=== PATIENT | female | born 1995 | race African-American/Black ===

== ENCOUNTER → 2016-10-13 | Outpatient (CLI) | payer OTHER ==
--- NOTE | 2016-10-13 08:25 | US ---
EXAMINATION TYPE: US pelvic complete DATE OF EXAM: 10/13/2016 7:06 AM COMPARISON: No previous CLINICAL HISTORY: 21-year-old female IUD Placement Z97.5. IUD placement, spotting x 2 days, 3 , para 3 TECHNIQUE: Transabdominal (TA) Date of LMP: 09/30/16 FINDINGS: Uterus: Anteverted measuring 8.6 x 4.8 x 4.1 cm Endometrial Stripe: 0.4 cm. The IUD appears positioned low at the level of the lower uterine segment. The IUD sidearms appear to project into the myometrium. Right Ovary: 2.8 x 2.2 x 2.0 cm Left Ovary: 2.8 x 2.9 x 2.3 cm Follicular change in both ovaries with a 1.6 cm dominant follicle or functional cyst on the left. No evident adnexal abnormality or cul-de-sac free fluid. Suggestion of some debris dependently within the bladder. IMPRESSION: 1. The IUD appears positioned abnormally low at the level of the lower uterine segment. The IUD sidea jennifer appear to project into the myometrium. 2. Some debris seen dependently within the bladder. Correlate to exclude UTI.
== END | disposition home or self-care (01) ==
LOC: RADUSWWP 07:04
PROVIDERS: ATTEND Obstetrics & Gynecology
DX: Z09 Encounter for follow-up examination after completed treatment for conditions other than malignant neoplasm (principal); Z97.5 Presence of (intrauterine) contraceptive device
CPT/HCPCS: 76856